=== PATIENT | male | born 1990 | race Caucasian/White ===

== ENCOUNTER 2022-04-19 10:51 | Outpatient (CLI) | payer OTHER, SELFPAY ==
[2022-04-19 12:49] LABS: Cholesterol* 167 mg/dL (90-199); Glucose* 93 mg/dL (60-115); HDL Cholesterol* 28 mg/dL (>=40); Triglycerides* 103 mg/dL (40-149)
[2022-04-19 13:29] LABS: LDL Cholesterol Calculated 119 mg/dL (<100)
== END 2022-04-19 10:52 | disposition home or self-care (01) ==
LOC: NFLDREF 10:52
PROVIDERS: PCP Family Medicine; Visit Provider Family Medicine
DX: Z13.1 Encounter for screening for diabetes mellitus (principal); Z13.6 Encounter for screening for cardiovascular disorders
CPT/HCPCS: 80061; 82947

== ENCOUNTER 2024-04-27 12:36 | Outpatient (CLI) | payer OTHER, SELFPAY | END 2024-04-27 12:37 | disposition home or self-care (01) | PROVIDERS: PCP Family Medicine; Visit Provider Physician Assistant | DX: E66.9 Obesity, unspecified (principal); R00.2 Palpitations | CPT/HCPCS: 84443 ==